=== PATIENT | male | born 1955 | race Caucasian/White ===

== ENCOUNTER 2018-07-24 20:02 | Emergency (ER) | payer OTHER, MEDICAID ==
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
[2018-07-24 20:42] LABS: ABSOLUTE LYMPHOCYTES (AUTO) 1.7 10^3/uL (0.5-4.7); ABSOLUTE MONOCYTES (AUTO) 1.1 10^3/uL (0.1-1.4); ABSOLUTE NEUT (AUTO) 10.6 10^3/uL (1.7-8.2); BASOPHILS % (AUTO) 0.3 % (0-2); EOSINOPHILS % (AUTO) 0.2 % (0-6); HEMATOCRIT 45.3 % (37.9-51.0); HEMOGLOBIN 15.3 g/dL (13.5-17.0); LYMPHOCYTES % (AUTO) 12.9 % (13-45); MEAN CORPUSCULAR HEMOGLOBIN 32.1 pg (27.0-33.4); MEAN CORPUSCULAR HGB CONC 33.8 g/dL (32.0-36.0); MEAN CORPUSCULAR VOLUME 95 fl (80-97); MONOCYTES % (AUTO) 7.8 % (3-13); PLATELET COUNT 524 10^3/uL (150-450); RED BLOOD COUNT 4.77 10^6/uL (4.35-5.55); RED CELL DISTRIBUTION WIDTH 15.6 % (11.5-14.0); SEGMENTED NEUTROPHILS % (AUTO) 78.8 % (42-78); TOTAL CELLS COUNTED % (AUTO) 100 %; WHITE BLOOD COUNT 13.4 10^3/uL (4.0-10.5)
[2018-07-24 20:47] LABS: ALANINE AMINOTRANSFERASE 19 U/L (21-72); ALBUMIN 4.2 g/dL (3.5-5.0); ALKALINE PHOSPHATASE 101 U/L (38-126); ASPARTATE AMINO TRANSFERASE 33 U/L (17-59); BILIRUBIN,DIRECT 0.5 mg/dL (0.0-0.4); BILIRUBIN,TOTAL 0.8 mg/dL (0.2-1.3); BLOOD UREA NITROGEN 4 mg/dL (7-20); CHLORIDE 90 mmol/L (98-107); CREATINE KINASE 75 U/L (55-170); GLUCOSE 132 mg/dL (75-110); TOTAL PROTEIN 7.6 g/dL (6.3-8.2)
[2018-07-24 20:52] LABS: CARBON DIOXIDE 22 mmol/L (22-30); SODIUM 133.9 mmol/L (137-145)
[2018-07-24 20:53] LABS: ANION GAP 22 (5-19)
[2018-07-24 20:59] LABS: CREATINE KINASE MB 2.45 ng/mL (<4.55)
[2018-07-24 21:00] LABS: TROPONIN I < 0.012 ng/mL
[2018-07-24 22:11] LABS: INTERNATIONAL RATION (INR) 0.88; PROTHROMBIN TIME 12.4 SEC (11.4-15.4)
[2018-07-24 23:06] LABS: APPEARANCE,URINE CLEAR; BILIRUBIN,URINE NEGATIVE (NEGATIVE); COLOR,URINE YELLOW; GLUCOSE, URINE 50 mg/dL (NEGATIVE); KETONES,URINE TRACE mg/dL (NEGATIVE); LEUKOCYTE ESTERASE,URINE NEGATIVE (NEGATIVE); NITRITE,URINE NEGATIVE (NEGATIVE); PROTEIN,URINE 30 mg/dL (NEGATIVE); URINE SPECIFIC GRAVITY 1.016
[2018-07-24] MEDS ORDERED: HEPARIN SOD (PORCINE) 1,000 UNIT/ML 10 ML VIAL IV ONE (23:10)
[2018-07-24] MEDS ORDERED: HEPARIN SODIUM,PORCINE/D5W 25,000 UNIT/250 ML RTUINJ IV PRN (23:10)
--- NOTE | 2018-07-24 23:54 | RADIOLOGY REPORT (SQ) ---
XR CHEST 1 VIEW HISTORY: Syncope, diaphoretic. COMPARISON: 06/19/2017 FINDINGS/IMPRESSION: Normal cardiomediastinal silhouette. Pulmonary vasculature is unremarkable. Lungs are clear. No pleural effusion or pneumothorax is seen. Chronic left rib fractures and left clavicular fracture.
--- NOTE | 2018-07-24 23:55 | RADIOLOGY REPORT (SQ) ---
CT HEAD WITHOUT IV CONTRAST HISTORY: Syncope with confusion. COMPARISON: 06/19/2017 TECHNIQUE: CT scan of the brain. This exam was performed according to our departmental dose-optimization program, which includes automated exposure control, adjustment of the mA and/or kV according to patient size and/or use of iterative reconstruction technique. FINDINGS: The ventricles, cisterns, and sulci are age-appropriate. The shearer-white matter differentiation is preserved without evidence of acute infarction. No acute intracranial hemorrhage or extra-axial fluid collection is seen. No midline shift, mass effect, or hydrocephalus. Paranasal sinuses and mastoid air cells are clear. Calvarium is intact. IMPRESSION: No acute intracranial abnormality.
--- NOTE | 2018-07-24 23:55 | RADIOLOGY REPORT (SQ) ---
EXAM DESCRIPTION: XR FOOT 3 OR MORE VIEWS COMPLETED DATE/TME: 07/24/2018 22:02 CLINICAL HISTORY: 62 years Male, Black toes COMPARISON: None. Findings: Partially imaged osteotomy plate and screws of the distal left fibula. Two screw fixation of the medial malleolus.. No medial flexion deformity/positioning of the right fourth distal interphalangeal joint. Bones, joints, and soft tissues of the LEFT XR FOOT 3 OR MORE VIEWS appear otherwise intact. IMPRESSION: No acute findings.
[2018-07-25 01:38] VITALS: BP 155/109
[2018-07-25] MEDS ORDERED: HEPARIN SOD (PORCINE) 1,000 UNIT/ML 10 ML VIAL IV PRN (02:11)
--- NOTE | 2018-07-25 07:57 | EKG REPORT ---
SEVERITY:- BORDERLINE ECG - SINUS RHYTHM PROBABLE LEFT ATRIAL ABNORMALITY : Confirmed by: Vicki Guzman MD 25-Jul-2018 07:56:44
== END 2018-07-25 02:00 | disposition short-term general hospital (02) ==
LOC: ER 20:02
DX: R55 Syncope and collapse (principal); I96 Gangrene, not elsewhere classified; R41.0 Disorientation, unspecified; S90.32XA Contusion of left foot, initial encounter; X58.XXXA Exposure to other specified factors, initial encounter; I10 Essential (primary) hypertension; J44.9 Chronic obstructive pulmonary disease, unspecified; F17.210 Nicotine dependence, cigarettes, uncomplicated; Z99.81 Dependence on supplemental oxygen; Z86.73 Personal history of transient ischemic attack (TIA), and cerebral infarction without residual deficits; Z85.3 Personal history of malignant neoplasm of breast; R61 Generalized hyperhidrosis; I99.8 Other disorder of circulatory system
CPT/HCPCS: 93005; 99285; 96365; 96366; 36415; 82553; 82550; 83735; 85025; 85610; 85730; 80053; 81001; 84484; 83605; 71045; 73630; 70450; 93010; J1644 ×2

== ENCOUNTER → 2018-10-03 | Outpatient (CLI) | payer MEDICAID ==
[2018-10-03 11:44] LABS: ABSOLUTE BASOPHILS # (AUTO) 0.1 10^3/uL (0.0-0.2); ABSOLUTE EOSINOPHILS # (AUTO) 0.2 10^3/uL (0.0-0.6); ABSOLUTE LYMPHOCYTES (AUTO) 1.8 10^3/uL (0.5-4.7); ABSOLUTE MONOCYTES (AUTO) 0.8 10^3/uL (0.1-1.4); ABSOLUTE NEUT (AUTO) 4.4 10^3/uL (1.7-8.2); BASOPHILS % (AUTO) 1.3 % (0-2); HEMATOCRIT 38.7 % (37.9-51.0); HEMOGLOBIN 13.2 g/dL (13.5-17.0); LYMPHOCYTES % (AUTO) 24.4 % (13-45); MEAN CORPUSCULAR HEMOGLOBIN 32.5 pg (27.0-33.4); MEAN CORPUSCULAR HGB CONC 34.2 g/dL (32.0-36.0); MEAN CORPUSCULAR VOLUME 95 fl (80-97); MONOCYTES % (AUTO) 11.3 % (3-13); PLATELET COUNT 619 10^3/uL (150-450); RED BLOOD COUNT 4.07 10^6/uL (4.35-5.55); RED CELL DISTRIBUTION WIDTH 16.7 % (11.5-14.0); TOTAL CELLS COUNTED % (AUTO) 100 %; WHITE BLOOD COUNT 7.4 10^3/uL (4.0-10.5)
[2018-10-03 12:12] LABS: ALANINE AMINOTRANSFERASE 20 U/L (21-72); ALBUMIN 4.2 g/dL (3.5-5.0); ALKALINE PHOSPHATASE 101 U/L (38-126); ANION GAP 15 (5-19); ASPARTATE AMINO TRANSFERASE 29 U/L (17-59); BILIRUBIN,DIRECT 0.2 mg/dL (0.0-0.4); BILIRUBIN,TOTAL 0.4 mg/dL (0.2-1.3); BLOOD UREA NITROGEN 7 mg/dL (7-20); C-REACTIVE PROTEIN 14.2 mg/L (<10.0); CALCIUM 10.5 mg/dL (8.4-10.2); CARBON DIOXIDE 24 mmol/L (22-30); CHLORIDE 99 mmol/L (98-107); GLUCOSE 90 mg/dL (75-110); POTASSIUM 4.6 mmol/L (3.6-5.0); SODIUM 138.4 mmol/L (137-145); TOTAL PROTEIN 7.7 g/dL (6.3-8.2)
--- NOTE | 2018-10-03 12:16 | RADIOLOGY REPORT (SQ) ---
EXAM DESCRIPTION: FOOT LEFT COMPLETE COMPLETED DATE/TIME: 10/03/2018 12:03 pm REASON FOR STUDY: NON PRESSURE L FOOT NECROSIS L97.523 NON-PRS CHRONIC ULCER OTH PRT LEFT FOOT W SHIRLEY BRITTON O COMPARISON: 07/24/2018 NUMBER OF VIEWS: Three views. TECHNIQUE: AP, lateral and oblique radiographic images acquired of the left foot. LIMITATIONS: None. FINDINGS: MINERALIZATION: Osteopenic BONES: Since the prior films 07/24/2018, patient has undergone transmetatarsal amputation at the left foot. Small fragments of the bases of the 2nd 4th and 5th metatarsals remain. JOINTS: Ankle joint, intertarsal joints are intact SOFT TISSUES: Persistent ulcer or unhealed incision site post amputation along the anterior midfoot. OTHER: Old left ankle bimalleolar hardware IMPRESSION: Persistent ulcer or unhealed incision site along the anterior left foot Post trans metatarsal amputation left foot, with small residual fragments of the 2nd 4th and 5th meta tarsals present. Diffuse osteopenia likely from disuse. TECHNICAL DOCUMENTATION: JOB ID: [id number] [employer]- All Rights Reserved Reading location - IP/workstation name: [email or web address]
[2018-10-03 12:44] LABS: ERYTHROCYTE SEDIMENTATION RATE 31 mm/hr (0-20)
== END ==
LOC: LAB 11:29
PROVIDERS: ATTEND Preventive Medicine Undersea and Hyperbaric Medicine
DX: L97.523 Non-pressure chronic ulcer of other part of left foot with necrosis of muscle (principal)
CPT/HCPCS: 36415; 80053; 85025; 85652; 86140

== ENCOUNTER → 2018-11-08 | Outpatient (CLI) | payer MEDICAID ==
[2018-11-08 10:01] LABS: ABSOLUTE BASOPHILS # (AUTO) 0.1 10^3/uL (0.0-0.2); ABSOLUTE EOSINOPHILS # (AUTO) 0.2 10^3/uL (0.0-0.6); ABSOLUTE LYMPHOCYTES (AUTO) 2.9 10^3/uL (0.5-4.7); ABSOLUTE MONOCYTES (AUTO) 0.9 10^3/uL (0.1-1.4); ABSOLUTE NEUT (AUTO) 4.8 10^3/uL (1.7-8.2); BASOPHILS % (AUTO) 1.1 % (0-2); EOSINOPHILS % (AUTO) 2.4 % (0-6); HEMATOCRIT 40.2 % (37.9-51.0); HEMOGLOBIN 13.4 g/dL (13.5-17.0); LYMPHOCYTES % (AUTO) 32.7 % (13-45); MEAN CORPUSCULAR HEMOGLOBIN 30.8 pg (27.0-33.4); MEAN CORPUSCULAR HGB CONC 33.3 g/dL (32.0-36.0); MEAN CORPUSCULAR VOLUME 93 fl (80-97); MONOCYTES % (AUTO) 10.4 % (3-13); PLATELET COUNT 595 10^3/uL (150-450); RED BLOOD COUNT 4.34 10^6/uL (4.35-5.55); RED CELL DISTRIBUTION WIDTH 16.2 % (11.5-14.0); SEGMENTED NEUTROPHILS % (AUTO) 53.4 % (42-78); TOTAL CELLS COUNTED % (AUTO) 100 %; WHITE BLOOD COUNT 8.9 10^3/uL (4.0-10.5)
[2018-11-08 10:25] LABS: ALANINE AMINOTRANSFERASE 26 U/L (21-72); ALBUMIN 4.1 g/dL (3.5-5.0); ALKALINE PHOSPHATASE 108 U/L (38-126); ANION GAP 12 (5-19); ASPARTATE AMINO TRANSFERASE 34 U/L (17-59); BILIRUBIN,DIRECT 0.2 mg/dL (0.0-0.4); BILIRUBIN,TOTAL 0.3 mg/dL (0.2-1.3); BLOOD UREA NITROGEN 3 mg/dL (7-20); C-REACTIVE PROTEIN 7.3 mg/L (<10.0); CARBON DIOXIDE 26 mmol/L (22-30); CHLORIDE 100 mmol/L (98-107); GLUCOSE 96 mg/dL (75-110); POTASSIUM 4.7 mmol/L (3.6-5.0); SODIUM 138.3 mmol/L (137-145); TOTAL PROTEIN 7.4 g/dL (6.3-8.2)
--- NOTE | 2018-11-08 10:29 | RADIOLOGY REPORT (SQ) ---
EXAM DESCRIPTION: FOOT LEFT COMPLETE COMPLETED DATE/TIME: 11/08/2018 9:44 am REASON FOR STUDY: NON-PRS CHRONIC ULCER OTH PRT LEFT FOOT W NECROSIS OF BONE L97.524 NON-PRS CHRONI C ULCER OTH PRT LEFT FOOT W NECROSIS O COMPARISON: 10/03/2018 NUMBER OF VIEWS: Three views. TECHNIQUE: AP, lateral and oblique radiographic images acquired of the left foot. LIMITATIONS: None. FINDINGS: MINERALIZATION: Osteopenia. BONES: No significant change. Transmetatarsal amputation. No definite osteomyelitis. JOINTS: Old bimalleolar fracture. SOFT TISSUES: Perform artery. OTHER: No other significant finding. IMPRESSION: No evidence of osteomyelitis. TECHNICAL DOCUMENTATION: JOB ID: [id number] [employer]- All Rights Reserved Reading location - IP/workstation name: [email or web address]
[2018-11-08 11:20] LABS: ERYTHROCYTE SEDIMENTATION RATE 23 mm/hr (0-20)
== END ==
LOC: RAD 09:26
PROVIDERS: ATTEND Preventive Medicine Undersea and Hyperbaric Medicine
DX: L97.524 Non-pressure chronic ulcer of other part of left foot with necrosis of bone (principal)
CPT/HCPCS: 36415; 80053; 85025; 85652; 86140

== ENCOUNTER 2019-04-14 09:40 | Emergency (ER) | payer OTHER, MEDICAID ==
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
[2019-04-14] MEDS ORDERED: ACETAMINOPHEN 325 MG TABLET PO ONE (10:39)
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
--- NOTE | 2019-04-14 12:20 | RADIOLOGY REPORT (SQ) ---
EXAM DESCRIPTION: SHOULDER LEFT 2 OR MORE VIEWS COMPLETED DATE/TIME: 04/14/2019 11:07 am REASON FOR STUDY: trauma COMPARISON: None. NUMBER OF VIEWS: Three views. TECHNIQUE: Internal rotation, external rotation, and Y view images acquired of the left shoulder. LIMITATIONS: None. FINDINGS: MINERALIZATION: Normal. BONES: Chronic appearing deformity of the distal clavicles. There is cortical step-off with an obliq ue lucency of the distal clavicle which is suggestive of a nondisplaced fracture. Acromioclavicular and glenohumeral alignment are maintained. No sinister bone lesion. JOINTS: No dislocation. VISUALIZED LUNGS AND RIBS: No pneumothorax. Chronic deformities of multiple posterolateral left rib s suggestive of remote nondisplaced fractures. SOFT TISSUES: No radiopaque foreign body. OTHER: No other significant finding. IMPRESSION: Suspect nondisplaced distal left clavicle fracture. TECHNICAL DOCUMENTATION: JOB ID: [id number] [employer]- All Rights Reserved Reading location - IP/workstation name: [email or web address]
--- NOTE | 2019-04-14 12:23 | RADIOLOGY REPORT (SQ) ---
EXAM DESCRIPTION: RIBS LEFT W/PA CHEST COMPLETED DATE/TIME: 04/14/2019 11:07 am REASON FOR STUDY: trauma COMPARISON: Concurrent left shoulder radiograph TECHNIQUE: Frontal view of the chest and additional views of the left ribs acquired. NUMBER OF VIEWS: 3 LIMITATIONS: None. FINDINGS: FRONTAL CXR: Cardiomediastinal silhouette is normal in size. Central pulmonary vasculatur e is normal. No focal consolidation, pleural effusion, or pneumothorax. RIBS: Nondisplaced age indeterminate lateral left 9th rib fracture. Multiple additional chronic appe aring deformities of the left ribs suggestive through nondisplaced fractures. OTHER: Distal left clavicle deformity and suspected nondisplaced fracture as detailed on dedicated le ft shoulder radiographs. Round well corticated osseous body adjacent to the lateral acromion, access ory ossicle versus sequelae of prior injury. Calcifications of the abdominal aorta. IMPRESSION: 1. Age-indeterminate nondisplaced lateral left 9th rib fracture. 2. Additional nondisplaced remote left-sided rib fractures. 3. Suspected distal left clavicle fracture as detailed on dedicated shoulder radiographs. COMMENT: SITE OF TRAUMA/COMPLAINT MARKED/STAMP COMPLETED: NO. TECHNICAL DOCUMENTATION: JOB ID: [id number] [employer]- All Rights Reserved Reading location - IP/workstation name: [email or web address]
[2019-04-14 12:50] VITALS: BP 127/72
--- NOTE | 2019-04-14 16:37 | EKG REPORT ---
SEVERITY:- ABNORMAL ECG - SINUS RHYTHM PROBABLE INFERIOR INFARCT, AGE INDETERMINATE : Confirmed by: Joo Braun MD 14-Apr-2019 16:36:38
== END 2019-04-14 12:56 | disposition home or self-care (01) ==
LOC: ER 09:40
DX: S42.035A Nondisplaced fracture of lateral end of left clavicle, initial encounter for closed fracture (principal); S22.32XA Fracture of one rib, left side, initial encounter for closed fracture; I10 Essential (primary) hypertension; J44.9 Chronic obstructive pulmonary disease, unspecified; I73.9 Peripheral vascular disease, unspecified; E03.9 Hypothyroidism, unspecified; K21.9 Gastro-esophageal reflux disease without esophagitis; M19.90 Unspecified osteoarthritis, unspecified site; V29.40XA Motorcycle driver injured in collision with unspecified motor vehicles in traffic accident, initial encounter; Y93.89 Activity, other specified; Y92.410 Unspecified street and highway as the place of occurrence of the external cause; Y99.9 Unspecified external cause status; F17.290 Nicotine dependence, other tobacco product, uncomplicated; Z86.73 Personal history of transient ischemic attack (TIA), and cerebral infarction without residual deficits; Z85.828 Personal history of other malignant neoplasm of skin
CPT/HCPCS: 93005; 93010; 99283